=== PATIENT | male | born 1975 | race Caucasian/White ===

== ENCOUNTER 2019-10-06 16:41 | Emergency (ER) | payer OTHER ==
[~2019-10-06] VITALS: Ht 167.6 cm; Wt 61.1 kg
[2019-10-06 17:05] VITALS: BP 110/68; TEMP 98.3
[2019-10-06] MEDS ORDERED: FLEXERIL5 MG PO (17:57)
[2019-10-06] MEDS ORDERED: VIVLODEX5 MG PO (17:57)
[2019-10-06 19:01] VITALS: PULSE 86
== END 2019-10-06 19:01 | disposition home or self-care (01) ==
LOC: COL.ER 16:41
DX: M54.12 Radiculopathy, cervical region (principal); F17.210 Nicotine dependence, cigarettes, uncomplicated

== ENCOUNTER → 2022-05-30 | Outpatient (CLI) | payer BC ==
[~2022-05-30] MED LIST: FLEXERIL5 MG PO; VIVLODEX5 MG PO
== END ==
LOC: MHCPAIN 10:28
DX: M47.812 Spondylosis without myelopathy or radiculopathy, cervical region (principal); M54.12 Radiculopathy, cervical region; M54.2 Cervicalgia; G89.29 Other chronic pain
CPT/HCPCS: G0463

== ENCOUNTER → 2022-06-13 | Outpatient (CLI) | payer BC | LOC: MHCPAIN 13:30 | DX: M47.812 Spondylosis without myelopathy or radiculopathy, cervical region (principal); M54.12 Radiculopathy, cervical region | CPT/HCPCS: J1100; Q9967 ==

== ENCOUNTER → 2022-06-22 | Outpatient (CLI) | payer BC | LOC: MHCPAIN 10:51 | DX: M47.892 Other spondylosis, cervical region (principal); M54.12 Radiculopathy, cervical region | CPT/HCPCS: G0463 ==

== ENCOUNTER → 2024-06-25 | Outpatient (CLI) | payer BC | LOC: MHCPAIN 13:03 | DX: M25.512 Pain in left shoulder (principal); M54.12 Radiculopathy, cervical region; M48.02 Spinal stenosis, cervical region; Z98.1 Arthrodesis status | CPT/HCPCS: G0463 ==